=== PATIENT | male | born 2000 | race Caucasian/White ===

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

== ENCOUNTER 2019-03-16 02:05 | Emergency (ER) | payer BC ==
[~2019-03-16] VITALS: Ht 180.3 cm; Wt 78.1 kg
[~2019-03-16 02:05] MED LIST: ACET500C5 PO; AMOX1TAB10 PO; CEPH-443 PO; IBUP-1542 PO; OMEP20CA16 PO; TRAM50TA2 PO
[2019-03-16 02:17] VITALS: Ht 180.3 cm; Wt 78.1 kg
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
[2019-03-16] MEDS ORDERED: ONDANSETRON (ODT) 4 MG TAB ODT STA (03:26)
[2019-03-16] MEDS ORDERED: KETOROLAC 30 MG INJ IM STA (03:26)
[2019-03-16] MEDS ORDERED: CYCLOBENZAPRINE 10 MG TAB PO ONE (03:30)
[2019-03-16] MEDS ORDERED: CYCL10TA7 PO (04:21)
[2019-03-16] MEDS ORDERED: IBUP800T48 PO (04:21)
[2019-03-16] MEDS ORDERED: POLY17PO6 PO (06:34)
[2019-03-16 06:37] VITALS: BP 132/86; PULSE 93; RESP 18
== END 2019-03-16 06:39 | disposition home or self-care (01) ==
LOC: FTE 02:05
DX: S16.1XXA Strain of muscle, fascia and tendon at neck level, initial encounter (principal); Y04.8XXA Assault by other bodily force, initial encounter
CPT/HCPCS: 72125; Z7502; Z7610